=== PATIENT | male | born 1955 | race African-American/Black ===

== ENCOUNTER 2019-12-19 16:02 | Emergency (ER) | payer OTHER ==
[~2019-12-19] VITALS: Ht 175.3 cm; Wt 104.3 kg
[2019-12-19] MEDS ORDERED: PANTOPRAZOLE SODIUM 40 MG VIAL IV ONE (16:15)
[2019-12-19] MEDS ORDERED: ONDANSETRON 4 MG/2 ML VIAL IV ONE ×4 (16:15→21:45)
[2019-12-19] MEDS ORDERED: IV NORMAL SALINE 1000 ML BAG IV ONE (16:15)
[2019-12-19] MEDS ORDERED: MORPHINE SULFATE 2 MG/1 ML DISP.SYRIN IV ONE (16:15)
[2019-12-19] MEDS ORDERED: PANTOPRAZOLE SODIUM 40 MG VIAL ONE (16:26)
[2019-12-19] MEDS ORDERED: ONDANSETRON 4 MG/2 ML VIAL ONE ×4 (16:26→21:44)
[2019-12-19] MEDS ORDERED: MORPHINE SULFATE 4 MG/1 ML DISP.SYRIN ONE (16:26)
--- NOTE | 2019-12-19 16:31 | NUR ---
PT IS IN ROOM #2A. DR MENDOZA EVALUATED THE PT.
[2019-12-19 16:47] LABS: BASOPHILS % (AUTO) 0.5 % (0.0-2.0); CREATININE 1.2 mg/dL (0.6-1.3); HEMATOCRIT 44.5 % (36.7-47.1); HEMOGLOBIN 15.3 g/dL (12.5-16.3); LYMPHOCYTES # (AUTO) 0.8 K/uL (20.0-40.0); LYMPHOCYTES % (AUTO) 9.3 % (20.5-51.5); MEAN CORPUSCULAR HEMOGLOBIN 28.9 uug (23.8-33.4); MEAN CORPUSCULAR HGB CONC 34 g/dL (32.5-36.3); MEAN CORPUSCULAR VOLUME 84.4 fL (73.0-96.2); MONOCYTES # (AUTO) 0.3 K/uL (2.0-10.0); MONOCYTES % (AUTO) 3.2 % (0.0-11.0); NEUTROPHILS # (AUTO) 7.9 K/uL (1.8-8.9); PLATELET COUNT (AUTO) 221 K/uL (152-348); POTASSIUM 4.3 mmol/L (3.5-5.1); RED BLOOD CELL COUNT(AUTO) 5.27 MIL/uL (4.06-5.63)
[2019-12-19 16:52] LABS: BILIRUBIN,DIRECT 0.2 mg/dL (0.0-0.2); BILIRUBIN,TOTAL 0.7 mg/dL (0.2-1.0); TOTAL PROTEIN, SERUM 8.1 g/dL (6.4-8.2)
[2019-12-19] MEDS ORDERED: HYDROMORPHONE 1 MG/1 ML DISP.SYRIN IV ONE ×2 (17:15→21:45)
[2019-12-19] MEDS ORDERED: HYDROMORPHONE 1 MG/1 ML DISP.SYRIN ONE (17:21)
[2019-12-19] MEDS ORDERED: IV NORMAL SALINE 250 ML IV ONE (17:26)
[2019-12-19] MEDS ORDERED: IOHEXOL 300MG/ML 100 ML INFUS..BTL ONE (17:26)
[2019-12-19] MEDS ORDERED: SWABABLE VALVE TRANSFER SET EA MC ONE (17:26)
[2019-12-19] MEDS ORDERED: PIPERACILLIN SODIUM/TAZOBACTAM 3.375 G in IV DEXTROSE 5% 50 ML IV ONE (18:00)
[2019-12-19] MEDS ORDERED: METOCLOPRAMIDE HCL 10 MG/2 ML VIAL ONE (18:13)
[2019-12-19] MEDS ORDERED: PIPERACILLIN/TAZOBACTAM/D5W 50 ML IV ONE (18:13)
[2019-12-19] MEDS ORDERED: diphenhydrAMINE 50 MG/1 ML VIAL ONE (18:14)
[2019-12-19] MEDS ORDERED: METOCLOPRAMIDE HCL 10 MG/2 ML VIAL IV ONE (18:15)
[2019-12-19] MEDS ORDERED: diphenhydrAMINE 50 MG/1 ML VIAL IV ONE (18:15)
--- NOTE | 2019-12-19 18:46 | NUR ---
DR DESHPANDE TALKED TO DR POLO ([phone]) FROM [facility] ABOUT PT's TRANSFER. DR POLO ACCEPTING THE PT. [facility] PLUGGING MACHINE OPERATOR IS GOING CONTACT US WITH TRANSFER INFORMATION.
--- NOTE | 2019-12-19 18:56 | NUR ---
REPORT WAS GIVEN TO DIAMOND CLEAVER RN.
--- NOTE | 2019-12-19 21:14 | NUR ---
Received call from Dyllan Lamas [facility] Senior Network Security Architect, with transfer information, pt going to [facility], room 2278, number to report to , accepting MD is Dr. Reyes.
--- NOTE | 2019-12-19 21:18 | NUR ---
Called Soraida for transfer to [facility], ETA ~[phone]
--- NOTE | 2019-12-19 21:28 | NUR ---
[facility], trip#[id number], eta 1 hour, ~2230.
[2019-12-19] MEDS ORDERED: HYDROMORPHONE 2 MG/1 ML DISP.SYRIN ONE (21:44)
--- NOTE | 2019-12-19 21:59 | NUR ---
[facility]
--- NOTE | 2019-12-19 22:44 | NUR ---
[facility] arrived to ER to transport patient to [facility]. Report and documentation given to EMT.
== END 2019-12-19 22:45 | disposition short-term general hospital (02) ==
LOC: ER 16:02
DX: K56.609 Unspecified intestinal obstruction, unspecified as to partial versus complete obstruction (principal); E11.9 Type 2 diabetes mellitus without complications; Z79.82 Long term (current) use of aspirin; Z79.4 Long term (current) use of insulin; Z79.899 Other long term (current) drug therapy
CPT/HCPCS: 36415; 71045; 74176; 74177; 80048; 80076; 82962; 83690; 84484; 85025; 85730; 93005; 96365; 96375; 96376; 99285; C9113; J1170 ×2; J1200; J2270; J2405 ×4; J2543; J2765; Q9967; 70030-TC; A4663; J7030; J7050

== ENCOUNTER 2022-04-26 16:04 | Emergency (ER) | payer MEDICARE, OTHER ==
[~2022-04-26 16:04] MED LIST: AMLO10TA59 PO; ASPI81TA31 PO; BENA40TA8 PO; INSU100I26 SQ; INSU100V36 SQ
--- NOTE | 2022-04-26 17:51 | NUR ---
Pt lrft w/o being triaged.
== END 2022-04-26 17:52 | disposition left against medical advice (07) ==
LOC: ER 16:04
DX: Z53.21 Procedure and treatment not carried out due to patient leaving prior to being seen by health care provider (principal)